=== PATIENT | female | born 2000 | race Caucasian/White ===

== ENCOUNTER 2020-05-01 02:21 | Emergency (ER) | payer OTHER ==
[~2020-05-01] VITALS: Ht 175.3 cm; Wt 71.4 kg
[2020-05-01] MEDS ORDERED: HYDROmorphone PF 1 MG/ML DISP.SYRIN IVP ONE ×3 (02:30→04:00)
[2020-05-01] MEDS ORDERED: IV NORMAL SALINE 1,000ML 1,000 ML IV SCH (02:30)
[2020-05-01] MEDS ORDERED: HYDROmorphone PF 1 MG/ML DISP.SYRIN ONE (02:32)
--- NOTE | 2020-05-01 02:39 | PHYS DOC ---
Past History Past Medical History: No Pertinent History Adult General HPI HPI Patient is a 19-year-old female who presents for obvious bony abnormality of left ankle. Patient reports running and making a hard left turn slipping on ice and falling, cannot recall exact mechanism of how she fell onto left lower extremity but reported immediate focal pain and obvious bony abnormality to distal left lower leg. She did not hit her head, no loss of consciousness. Admits to drinking recreationally earlier in the evening but is not currently intoxicated, states last p.o. intake was approximately 8 hours prior to arrival. Patient's fall was observed by family members who immediately helped patient into private vehicle and transported her to our facility for evaluation. Of note, she is up-to-date on all vaccines, only medication is daily OCPs, no other medical conditions. Admits focal pain to distal left lower extremity with obvious bony abnormality protruding near ankle without penetration through skin, still has complete motor and sensory function of left foot but admits difficulties due to pain Review of Systems Review of Systems Fourteen body systems of review of systems have been reviewed. See HPI for pertinent positives and negative responses, other hsieh all other systems are negative, non-pertinent or non-contributory Current Medications Current Medications Current Medications Hydromorphone HCl (Dilaudid) 1 mg STK-MED ONCE .ROUTE ; Start 05/01/20 at 02:32; Stop 05/01/20 at 02:32; Status DC Sodium Chloride 1,000 ml @ 1,000 mls/hr Q1H IV ; Start 05/01/20 at 02:30; Stop 05/01/20 at 04:36; Status DC Hydromorphone HCl (Dilaudid) 1 mg 1X ONCE IVP Last administered on 05/01/20at 02:40; Start 05/01/20 at 02:30; Stop 05/01/20 at 04:36; Status DC Hydromorphone HCl (Dilaudid) 1 mg 1X ONCE IVP Last administered on 05/01/20at 03:05; Start 05/01/20 at 03:00; Stop 05/01/20 at 04:36; Status DC Hydromorphone HCl (Dilaudid) 1 mg 1X ONCE IVP Last administered on 05/01/20at 04:00; Start 05/01/20 at 04:00; Stop 05/01/20 at 04:36; Status DC Fentanyl Citrate (Fentanyl 2ml Vial) 100 mcg STK-MED ONCE .ROUTE ; Start 05/01/20 at 04:30; Stop 05/01/20 at 04:30; Status DC Fentanyl Citrate (Fentanyl 2ml Vial) 50 mcg 1X ONCE IVP Last administered on 05/01/20at 04:34; Start 05/01/20 at 04:45; Stop 05/01/20 at 04:46; Status DC Physical Exam Physical Exam Constitutional: Pt is oriented to person, place, and time. Pt appears well-developed and well- nourished. Acute distress due to pain HEENT: Head: Normocephalic and atraumatic. External ears unremarkable, negative leong sign Conjunctivae and EOM are normal. Pupils are equal, round, and reactive to light. Oropharynx is clear and moist. No hematomas or lacerations or abrasions to face or scalp OP clear, no blood, no malocclusion, dentition intact Nares clear, no nasal septal hematoma Midface stable Neck: C-spine midline nontender, no step-offs Cardiovascular: Normal rate, regular rhythm and normal heart sounds. Pulmonary/Chest: Effort normal and breath sounds normal. No respiratory distress. No wheezes. CTA bilaterally Abdominal: Soft. Bowel sounds are normal. Pt exhibits no distension. There is no tenderness. Musculoskeletal: Bony tenderness to distal left lower extremity with obvious bony abnormality protruding medially near left ankle without penetration through skin clinically concerning for acute dislocation versus fracture Chest wall stable Pelvis stable and non-tender No vertebral TTP and spine without stepoffs Neurological: Pt is alert and oriented to person, place, and time. Moving all extremities willfully, able to wiggle all fingers and toes Alert and oriented x 3 Complete motor and sensory function intact to bilateral lower extremities Tibial and dorsalis pedis pulses of bilateral lower extremities equal 2+ Skin: Skin is warm and dry. No abrasions, no lacerations Cap refill less than 3 seconds in upper and lower extremities Psychiatric: Behavior is appropriate for situation Current Patient Data Vital Signs Vital Signs Date Time Temp Pulse Resp B/P (MAP) Pulse Ox O2 Delivery O2 Flow Rate FiO2 05/01/20 02:40 18 98 Room Air 05/01/20 02:21 98.9 86 20 135/76 (95) 98 Room Air Lab Results Laboratory Tests Test 05/01/20 03:00 White Blood Count 8.6 x10^3/uL Red Blood Count 4.18 x10^6/uL Hemoglobin 12.6 g/dL Hematocrit 38.1 % Mean Corpuscular Volume 91 fL Mean Corpuscular Hemoglobin 30 pg Mean Corpuscular Hemoglobin Concent 33 g/dL Red Cell Distribution Width 12.6 % Platelet Count 304 x10^3/uL Neutrophils (%) (Auto) 60 % Lymphocytes (%) (Auto) 30 % Monocytes (%) (Auto) 7 % Eosinophils (%) (Auto) 2 % Basophils (%) (Auto) 1 % Neutrophils # (Auto) 5.2 x10^3uL Lymphocytes # (Auto) 2.6 x10^3/uL Monocytes # (Auto) 0.6 x10^3/uL Eosinophils # (Auto) 0.2 x10^3/uL Basophils # (Auto) 0.1 x10^3/uL Prothrombin Time 9.6 SEC Prothromb Time International Ratio 0.9 Activated Partial Thromboplast Time 24 SEC Sodium Level 141 mmol/L Potassium Level 3.3 mmol/L Chloride Level 103 mmol/L Carbon Dioxide Level 25 mmol/L Anion Gap 13 Blood Urea Nitrogen 13 mg/dL Creatinine 1.1 mg/dL Estimated GFR (Cockcroft-Gault) 63.3 BUN/Creatinine Ratio 12 Glucose Level 93 mg/dL Calcium Level 8.9 mg/dL Total Bilirubin 0.1 mg/dL Aspartate Amino Transf (AST/SGOT) 16 U/L Alanine Aminotransferase (ALT/SGPT) 25 U/L Alkaline Phosphatase 94 U/L Total Protein 7.3 g/dL Albumin 3.9 g/dL Albumin/Globulin Ratio 1.1 Serum Test, Qualitative Negative Ethyl Alcohol Level 68 mg/dL Current Medications Medications (Trade) Dose Ordered Sig/Ni Route PRN Reason Start Time Stop Time Status Last Admin Dose Admin Hydromorphone HCl (Dilaudid) 1 mg STK-MED ONCE .ROUTE 05/01/20 02:32 05/01/20 02:32 DC Sodium Chloride 1,000 ml @ 1,000 mls/hr Q1H IV 05/01/20 02:30 05/01/20 04:36 DC Hydromorphone HCl (Dilaudid) 1 mg 1X ONCE IVP 05/01/20 02:30 05/01/20 04:36 DC 1/1/21 02:40 Hydromorphone HCl (Dilaudid) 1 mg 1X ONCE IVP 05/01/20 03:00 05/01/20 04:36 DC 05/01/20 03:05 Hydromorphone HCl (Dilaudid) 1 mg 1X ONCE IVP 05/01/20 04:00 05/01/20 04:36 DC 05/01/20 04:00 Fentanyl Citrate (Fentanyl 2ml Vial) 100 mcg STK-MED ONCE .ROUTE 05/01/20 04:30 05/01/20 04:30 DC Fentanyl Citrate (Fentanyl 2ml Vial) 50 mcg 1X ONCE IVP 05/01/20 04:45 05/01/20 04:46 DC 05/01/20 04:34 EKG EKG [] Radiology/Procedures Radiology/Procedures XR KNEE _3 VIEWS_LT, XR LT TIBIA + FIBULA, XR FOOT_LEFT 2 VIEWS, XR EXAM OF ANKLE_LEFT 2V 05/01/2020 3:43 AM INDICATION: Trauma COMPARISON: None available. TECHNIQUE: 2 views of left foot, 2 views left tibia and fibula, 2 views of the left ankle and 3 views of the left knee are provided. FINDINGS/ IMPRESSION: 1. There is a comminuted fracture of the distal one third of the left fibular diaphysis. There is laterally displaced fracture fragment measuring 7.9 cm. 2. There is dislocation of the tibiotalar joint with disruption of the ankle mortise medially and laterally. There is calcaneocuboid dislocation. There is a fracture involving the superior calcaneus. Tarsals, metatarsals and phalanges are intact. 3. There is no significant knee effusion. No acute fracture or dislocation. Bone mineralization is within normal limits. No significant soft tissue abnormality Electronically signed by: Antonette Prescott MD (05/01/2020 4:43 AM) [facility] Heart Score HEART Score for Chest Pain: HEART Score for Chest Pain Response (Comments) Value History Slighlty/Non-Suspicious 0 Age < 45 0 Risk Factors No Risk Factors 0 Total 0 Risk Factors: Risk Factors: DM, Current or recent (<one month) smoker, HTN, HLP, family history of CAD, obesity. Risk Scores: Risk Factors: DM, Current or recent (<one month) smoker, HTN, HLP, family history of CAD, obesity. Course & Med Decision Making Course & Med Decision Making Pertinent Labs and Imaging studies reviewed. (See chart for details) Discussed most likely diagnosis of a closed comminuted displaced fracture of fibula with concomitant left ankle dislocation. I discussed need for transfer for orthopedic intervention I called [facility] and talked to Dr. Isaac, we discussed case and he agreed need for transfer to their facility for surgical intervention. Patient has been n.p.o. since 6 PM yesterday, pain currently well controlled, left lower extremity splinted, remains hemodynamically stable and left lower extremity remains neurovascularly intact with intact motor and sensory functions I updated patient on proposed plan of care and she was amenable. All questions and concerns addressed prior to ER transport to [facility] Guero Disclaimer Dragon Disclaimer This electronic medical record was generated, in whole or in part, using a voice recognition dictation system. Departure Departure: Impression: Primary Impression: Displaced comminuted fracture of shaft of fibula Additional Impression: Dislocation of ankle, left, closed Disposition: 02 DC/TRF OTHER SHORT TERM HOS ([facility]) Admitting Physician: Other (dr mahan) Condition: STABLE Referrals: ORLY BAIN MD (PCP) Problem Qualifiers SHAKILA SHAW DO May 01, 2020 02:39
[2020-05-01 03:24] LABS: BASO # 0.1 x10^3/uL (0.0-0.2); BASO % 1 % (0-3); EOS # 0.2 x10^3/uL (0.0-0.7); EOS % 2 % (0-3); HEMATOCRIT 38.1 % (36.0-47.0); HEMOGLOBIN 12.6 g/dL (12.0-15.5); LYMPH # 2.6 x10^3/uL (1.0-4.8); LYMPH % 30 % (24-48); MEAN CORPUSCULAR HEMOGLOBIN 30 pg (25-35); MEAN CORPUSCULAR HGB CONC 33 g/dL (31-37); MEAN CORPUSCULAR VOLUME 91 fL (79-100); MONO # 0.6 x10^3/uL (0.0-1.1); MONO % 7 % (0-9); NEUT # 5.2 x10^3uL (1.8-7.7); NEUT % 60 % (31-73); PLATELET COUNT 304 x10^3/uL (140-400); RED BLOOD COUNT 4.18 x10^6/uL (3.50-5.40); RED CELL DISTRIBUTION WIDTH 12.6 % (11.5-14.5); WHITE BLOOD COUNT 8.6 x10^3/uL (4.0-11.0)
[2020-05-01 03:36] LABS: CALCIUM 8.9 mg/dL (8.5-10.1); CREATININE 1.1 mg/dL (0.6-1.0); GFR 63.3; POTASSIUM 3.3 mmol/L (3.5-5.1)
[2020-05-01 03:44] LABS: ALBUMIN 3.9 g/dL (3.4-5.0); ALBUMIN/GLOBULIN RATIO 1.1 (1.0-1.7); TOTAL BILIRUBIN 0.1 mg/dL (0.2-1.0); TOTAL PROTEIN 7.3 g/dL (6.4-8.2)
[2020-05-01 03:57] LABS: PREG TEST PT QUAL NEGATIVE (NEG)
--- NOTE | 2020-05-01 04:45 | RAD ---
XR KNEE _3 VIEWS_LT, XR LT TIBIA + FIBULA, XR FOOT_LEFT 2 VIEWS, XR EXAM OF ANKLE_LEFT 2V 05/01/2020 3: 43 AM INDICATION: Trauma COMPARISON: None available. TECHNIQUE: 2 views of left foot, 2 views left tibia and fibula, 2 views of the left ankle and 3 view s of the left knee are provided. FINDINGS/ IMPRESSION: 1. There is a comminuted fracture of the distal one third of the left fibular diaphysis. There is lat erally displaced fracture fragment measuring 7.9 cm. 2. There is dislocation of the tibiotalar joint with disruption of the ankle mortise medially and lat erally. There is calcaneocuboid dislocation. There is a fracture involving the superior calcaneus. Ta rsals, metatarsals and phalanges are intact. 3. There is no significant knee effusion. No acute fracture or dislocation. Bone mineralization is wi thin normal limits. No significant soft tissue abnormality Electronically signed by: Antonette Prescott MD (05/01/2020 4:43 AM) [facility]
[2020-05-01 05:35] VITALS: BP 119/48
== END 2020-05-01 05:49 | disposition short-term general hospital (02) ==
LOC: ER 02:21
DX: S93.05XA Dislocation of left ankle joint, initial encounter (principal); S82.452A Displaced comminuted fracture of shaft of left fibula, initial encounter for closed fracture; W00.0XXA Fall on same level due to ice and snow, initial encounter; Y93.89 Activity, other specified; Y92.89 Other specified places as the place of occurrence of the external cause; Y99.8 Other external cause status
CPT/HCPCS: 29125; 36415; 73562; 73590; 73600; 73620; 80053; 84703; 85025; 85610; 85730; 96374; 96375; 96376; 99285; G0480; J1170; J3010

== ENCOUNTER → 2020-12-18 | Outpatient (CLI) | payer OTHER ==
--- NOTE | 2020-12-18 16:00 | RAD ---
XR EXAM OF ANKLE_LEFT 3V 12/18/2020 Reason: LEFT ANKLE PAIN S/P SURGERY IN MAY Comparison: Ankle radiograph July 24, 2020 Technique: 3 weightbearing views of the left ankle Findings: Redemonstration of a distal fibular diaphyseal fracture with increased callus formation and sclerosis along the fracture edges. On compared to the prior study during weightbearing on the lateral film th ere appears to be increased anterior displacement of the distal fracture fragment, approximately 4 mm . Syndesmotic retention buttons noted. The ankle mortise appears congruent. Impression: On the lateral weightbearing image, there appears to be increased anterior displacement of the distal fracture fragment when compared to the prior lateral radiographs. Electronically signed by: Dimitry Seymour (12/18/2020 3:58 PM) [id number]
== END ==
LOC: RAD 10:29
PROVIDERS: ATTEND Orthopaedic Surgery
DX: M84.464A Pathological fracture, left fibula, initial encounter for fracture (principal)
CPT/HCPCS: 73610